=== PATIENT | male | born 1975 | race Caucasian/White ===

== ENCOUNTER 2016-11-21 16:39 | Emergency (ER) | payer MEDICAID ==
[~2016-11-21] VITALS: Ht 177.8 cm; Wt 71.0 kg
[2016-11-21 16:40] VITALS: BP 124/78
== END 2016-11-21 18:14 | disposition left against medical advice (07) ==
LOC: ED 17:50
DX: S56.912A Strain of unspecified muscles, fascia and tendons at forearm level, left arm, initial encounter (principal); S56.911A Strain of unspecified muscles, fascia and tendons at forearm level, right arm, initial encounter; X50.9XXA Other and unspecified overexertion or strenuous movements or postures, initial encounter; Y93.89 Activity, other specified; Y92.89 Other specified places as the place of occurrence of the external cause; Y99.8 Other external cause status
CPT/HCPCS: 99284

== ENCOUNTER 2016-12-01 15:37 | Emergency (ER) | payer MEDICAID ==
[~2016-12-01] VITALS: Ht 177.8 cm; Wt 71.2 kg
[2016-12-01 15:39] VITALS: BP 118/80
[2016-12-01] MEDS ORDERED: KETOROLAC 30 MG/1 ML ONE (16:00)
[2016-12-01] MEDS ORDERED: KETOROLAC 30 MG/1 ML IM ONE (16:00)
== END 2016-12-01 16:22 | disposition home or self-care (01) ==
LOC: ED 16:15
DX: S56.812A Strain of other muscles, fascia and tendons at forearm level, left arm, initial encounter (principal); S56.911A Strain of unspecified muscles, fascia and tendons at forearm level, right arm, initial encounter; X58.XXXA Exposure to other specified factors, initial encounter; Y93.89 Activity, other specified; Y99.8 Other external cause status; Y92.89 Other specified places as the place of occurrence of the external cause
CPT/HCPCS: 96372; 99283; J1885

== ENCOUNTER 2017-12-12 23:19 | Emergency (ER) | payer MEDICAID ==
[~2017-12-12] VITALS: Ht 177.8 cm; Wt 71.1 kg
[2017-12-12 23:20] VITALS: BP 144/89
[2017-12-12] MEDS ORDERED: HYDROcodone/APAP 5/325 TABLET ONE (23:51)
[2017-12-12] MEDS ORDERED: DIPH,PERTUSS(ACELL),TET VAC/PF 0.5 ML IM-VACC ONE (23:52)
[2017-12-12] MEDS ORDERED: KETOROLAC 30 MG/1 ML ONE (23:52)
[2017-12-13] MEDS ORDERED: DIPH,PERTUSS(ACELL),TET VAC/PF 0.5 ML IM-VACC ONE
[2017-12-13] MEDS ORDERED: KETOROLAC 30 MG/1 ML IM ONE
[2017-12-13] MEDS ORDERED: BUPIVACAINE 0.25% ONE (00:20)
[2017-12-13] MEDS ORDERED: LIDOCAINE-MPF 1%, 2ML ONE (00:20)
[2017-12-13] MEDS ORDERED: LIDOCAINE-MPF 2% ,5ML ONE (00:21)
[2017-12-13] MEDS ORDERED: LIDOCAINE-MPF 1%, 2ML INFIL ONE (00:30)
[2017-12-13] MEDS ORDERED: LIDOCAINE 2%, 20ML SQ ONE (00:30)
[2017-12-13] MEDS ORDERED: HYDROcodone/APAP 5/325 TABLET PO ONE (00:30)
[2017-12-13] MEDS ORDERED: BUPIVACAINE 0.25% INFIL ONE (00:30)
[2017-12-13] MEDS ORDERED: LIDOCAINE-MPF 2% ,5ML SQ ONE (01:00)
== END 2017-12-13 00:39 | disposition home or self-care (01) ==
LOC: ED 23:59
DX: S61.232A Puncture wound without foreign body of right middle finger without damage to nail, initial encounter (principal); L03.011 Cellulitis of right finger; W26.8XXA Contact with other sharp object(s), not elsewhere classified, initial encounter; Y93.89 Activity, other specified; Y92.89 Other specified places as the place of occurrence of the external cause; Y99.0 Civilian activity done for income or pay
CPT/HCPCS: 64450; 73140; 90715; 96372; 99284; J1885; J3490

== ENCOUNTER 2017-12-15 00:15 | Inpatient (IN) | payer MEDICAID ==
[~2017-12-15] VITALS: Ht 177.8 cm; Wt 71.1 kg
[2017-12-15] MEDS ORDERED: HYDR-3240 PO (00:38)
[2017-12-15] MEDS ORDERED: SULF1TAB24 PO (00:38)
[2017-12-15] MEDS ORDERED: CEPH-368 PO (00:38)
[2017-12-15] MEDS ORDERED: LIDOCAINE-MPF 2% ,5ML ONE (00:44)
[2017-12-15] MEDS ORDERED: MORPHINE SULFATE 4 MG/ML, 1ML ONE (00:57)
[2017-12-15] MEDS ORDERED: CLINDAMYCIN PMX 600MG/50ML 50 ML ONE (00:57)
[2017-12-15] MEDS ORDERED: MORPHINE SULFATE 4 MG/ML, 1ML IV PRN (01:00)
[2017-12-15] MEDS ORDERED: CLINDAMYCIN PMX 600MG/50ML 50 ML IVPB ONE (01:00)
[2017-12-15] MEDS ORDERED: LIDOCAINE-MPF 1%, 5ML INFIL ONE (01:00)
[2017-12-15] MEDS ORDERED: SODIUM CHLORIDE 0.9% 1,000ML IVBOLUS ONE (01:00)
[2017-12-15] MEDS ORDERED: SODIUM CHLORIDE FLUSH 10ML SYR IVF ONE (01:00)
[2017-12-15 01:09] LABS: BASOPHILS # (AUTO) 0.04 x10^3/uL (0-0.1); BASOPHILS % (AUTO) 0 % (0-1); EOSINOPHILS # (AUTO) 0.03 x10^3/uL (0-0.4); EOSINOPHILS % (AUTO) 0 % (1-7); HCT (SEDRATE) 44.9 % (39.2-51.8); LYMPHOCYTES # (AUTO) 0.98 x10^3/uL (1-3.4); LYMPHOCYTES % (AUTO) 9 % (22-44); MD NO; MEAN CORPUSCULAR HGB CONC 33.6 g/dL (33.2-36.2); MEAN CORPUSCULAR VOLUME 98.5 fL (81-97); MEAN PLATELET VOLUME 8.6 fL (7.4-10.4); MONOCYTES # (AUTO) 0.75 x10^3/uL (0.2-0.8); MONOCYTES % (AUTO) 7 % (2-9); NEUTROPHILS # (AUTO) 8.75 x10^3/uL (1.8-6.8); NEUTROPHILS % (AUTO) 83 % (42-75); PLATELET COUNT 282 x10^3/uL (130-400); RED BLOOD COUNT 4.55 x10^6/uL (4.38-5.82); RED CELL DISTRIBUTION WIDTH 13.1 % (9.4-14.8)
[2017-12-15 01:19] LABS: ALBUMIN 3.8 g/dL (3.4-5.0); ANION GAP 8 mmol/L (5-15); CALCIUM 8.7 mg/dL (8.5-10.1); CHLORIDE 106 mmol/L (98-107); CREATININE 1.15 mg/dL (0.7-1.3)
[2017-12-15 01:42] LABS: SEDIMENTATION RATE 37 mm/hr (0-10)
[2017-12-15 03:01] VITALS: BP 134/85
[2017-12-15] MEDS ORDERED: HYDROcodone/APAP 10/325 MG TABLET PO ONE (03:30)
[2017-12-15] MEDS ORDERED: POLYETHYLENE GLYCOL 17 GM PACKET PO PRN (05:30)
[2017-12-15] MEDS ORDERED: ONDANSETRON 2MG/ML, 2ML IVPush PRN (05:30)
[2017-12-15] MEDS ORDERED: ACETAMINOPHEN 325 MG TABLET PO PRN (05:30)
[2017-12-15] MEDS ORDERED: LORazepam 2 MG/ML, 1ML IV PRN ×3 (05:30)
[2017-12-15] MEDS ORDERED: DOCUSATE 100 MG CAPSULE PO PRN (05:30)
[2017-12-15] MEDS ORDERED: LORazepam 1MG TABLET PO PRN (05:30)
[2017-12-15] MEDS: morphine SULFATE 10 MG/ML, 1ML IVPush PRN ×4 (05:43→21:20)
[2017-12-15] MEDS: NS + 20MEQ KCL 1,000 ML IV SCH ×2 (05:43→19:41)
[2017-12-15] MEDS: NICOTINE 14MG/24 HR PATCH.TD24 TD SCH (05:49)
[2017-12-15] MEDS: ENOXAPARIN 40 MG/0.4 ML SQ SCH (05:51)
[2017-12-15] MEDS: CLINDAMYCIN PMX 600MG/50ML 50 ML IV SCH ×3 (06:02→19:40)
[2017-12-15 06:54] VITALS: BP 117/73
[2017-12-15] MEDS: HYDROcodone/APAP 5/325 TABLET PO PRN ×2 (08:58→14:34)
[2017-12-15 12:39] VITALS: BP 125/79
[2017-12-15] MEDS: LORazepam 0.5MG TABLET PO PRN ×2 (14:34→18:05)
[2017-12-15 18:49] VITALS: BP 131/78
[2017-12-15] MEDS: LORazepam 1MG TABLET PO PRN (20:11)
[2017-12-16] MEDS: LORazepam 1MG TABLET PO PRN (00:20)
[2017-12-16] MEDS: HYDROcodone/APAP 5/325 TABLET PO PRN ×5 (00:20→21:22)
[2017-12-16] MEDS: CLINDAMYCIN PMX 600MG/50ML 50 ML IV SCH ×4 (01:33→20:06)
[2017-12-16 02:19] VITALS: BP 115/71
[2017-12-16 05:04] LABS: BASOPHILS # (AUTO) 0.05 x10^3/uL (0-0.1); BASOPHILS % (AUTO) 1 % (0-1); EOSINOPHILS # (AUTO) 0.08 x10^3/uL (0-0.4); EOSINOPHILS % (AUTO) 1 % (1-7); LYMPHOCYTES # (AUTO) 0.99 x10^3/uL (1-3.4); LYMPHOCYTES % (AUTO) 14 % (22-44); MD NO; MEAN CORPUSCULAR HEMOGLOBIN 33.8 pg (27.5-34.5); MEAN CORPUSCULAR VOLUME 99.6 fL (81-97); MEAN PLATELET VOLUME 8.9 fL (7.4-10.4); MONOCYTES # (AUTO) 1.08 x10^3/uL (0.2-0.8); MONOCYTES % (AUTO) 16 % (2-9); NEUTROPHILS # (AUTO) 4.69 x10^3/uL (1.8-6.8); NEUTROPHILS % (AUTO) 68 % (42-75); PLATELET COUNT 217 x10^3/uL (130-400); RED BLOOD COUNT 4.06 x10^6/uL (4.38-5.82); RED CELL DISTRIBUTION WIDTH 12.7 % (9.4-14.8)
[2017-12-16 05:09] LABS: ANION GAP 6 mmol/L (5-15); CALCIUM 8.5 mg/dL (8.5-10.1); CHLORIDE 101 mmol/L (98-107); CREATININE 0.75 mg/dL (0.7-1.3)
[2017-12-16] MEDS: NICOTINE 14MG/24 HR PATCH.TD24 TD SCH (05:36)
[2017-12-16] MEDS: morphine SULFATE 10 MG/ML, 1ML IVPush PRN (05:38)
[2017-12-16] MEDS: ENOXAPARIN 40 MG/0.4 ML SQ SCH (06:00)
[2017-12-16 06:40] VITALS: BP 132/82
[2017-12-16] MEDS: NS + 20MEQ KCL 1,000 ML IV SCH (11:42)
[2017-12-16 14:54] VITALS: BP_SYST 130; BP_SYST 131; BP_DIAS 74; BP_DIAS 77
[2017-12-16 19:53] VITALS: BP 133/83
[2017-12-17] MEDS: CLINDAMYCIN PMX 600MG/50ML 50 ML IV SCH ×2 (01:05→08:01)
[2017-12-17] MEDS: NS + 20MEQ KCL 1,000 ML IV SCH (01:05)
[2017-12-17] MEDS: HYDROcodone/APAP 5/325 TABLET PO PRN ×2 (01:05→10:39)
[2017-12-17 01:09] VITALS: BP 120/77
[2017-12-17] MEDS: morphine SULFATE 10 MG/ML, 1ML IVPush PRN (05:57)
[2017-12-17] MEDS: ENOXAPARIN 40 MG/0.4 ML SQ SCH (05:58)
[2017-12-17] MEDS: NICOTINE 14MG/24 HR PATCH.TD24 TD SCH (05:59)
[2017-12-17 07:37] VITALS: BP 127/83
== END 2017-12-17 14:38 | disposition left against medical advice (07) | DRG 603 ==
LOC: ED 01:24 → EDIP 02:14 → 3NE 02:53
PROVIDERS: ADMIT Family Medicine; ATTEND Family Medicine
PROC: 3E0T3BZ Introduction of Anesthetic Agent into Peripheral Nerves and Plexi, Percutaneous Approach (ICD-10-PCS; principal; 2017-12-15)
PROC: 0H9FXZZ Drainage of Right Hand Skin, External Approach (ICD-10-PCS; 2017-12-15)
DX: L03.011 Cellulitis of right finger (principal); R56.9 Unspecified convulsions; L02.511 Cutaneous abscess of right hand; L03.021 Acute lymphangitis of right finger; F10.10 Alcohol abuse, uncomplicated; M54.12 Radiculopathy, cervical region; S60.031A Contusion of right middle finger without damage to nail, initial encounter; Z53.21 Procedure and treatment not carried out due to patient leaving prior to being seen by health care provider; B95.5 Unspecified streptococcus as the cause of diseases classified elsewhere; X58.XXXA Exposure to other specified factors, initial encounter; Z72.0 Tobacco use; Y93.89 Activity, other specified; Y92.89 Other specified places as the place of occurrence of the external cause; Y99.8 Other external cause status
CPT/HCPCS: 26010; 36415; 80048; 82040; 85025; 85651; 86140; 87040; 87070; 87147; 87181; 87205; 96365; 96375; J1650; J3480; J2270; J7030

== ENCOUNTER 2018-02-07 19:40 | Emergency (ER) | payer MEDICAID ==
[~2018-02-07] VITALS: Ht 177.8 cm; Wt 70.9 kg
[~2018-02-07 19:40] MED LIST: CEPH-368 PO; HYDR-3240 PO; SULF1TAB24 PO
[2018-02-07 20:10] VITALS: BP 113/76
[2018-02-07] MEDS ORDERED: METHOCARBAMOL 750 MG TABLET ONE (20:29)
[2018-02-07] MEDS ORDERED: CEFTRIAXONE 1,000 MG ONE (20:29)
[2018-02-07] MEDS ORDERED: LIDOCAINE-MPF 1%, 2ML ONE ×2 (20:29→20:51)
[2018-02-07] MEDS ORDERED: METHOCARBAMOL 750 MG TABLET PO ONE (20:30)
[2018-02-07] MEDS ORDERED: CEFTRIAXONE 1,000 MG IM ONE ×2 (20:30)
[2018-02-07] MEDS ORDERED: LIDOCAINE-MPF 1%, 5ML INFIL ONE (20:30)
[2018-02-07] MEDS ORDERED: BACITRACIN ZINC OINT 500U/GM, 0.9 GM ONE (21:30)
== END 2018-02-07 21:38 | disposition home or self-care (01) ==
LOC: ED 21:32
DX: L02.413 Cutaneous abscess of right upper limb (principal); S16.1XXA Strain of muscle, fascia and tendon at neck level, initial encounter; Z88.0 Allergy status to penicillin; F17.200 Nicotine dependence, unspecified, uncomplicated; X58.XXXA Exposure to other specified factors, initial encounter; Y93.89 Activity, other specified; Y99.8 Other external cause status; Y92.89 Other specified places as the place of occurrence of the external cause
CPT/HCPCS: 10060; 96372; 99283; J0696

== ENCOUNTER 2018-04-06 09:34 | Emergency (ER) | payer MEDICAID ==
[~2018-04-06] VITALS: Ht 177.8 cm; Wt 70.1 kg
[2018-04-06] MEDS ORDERED: HYDROmorphone 2 MG/ML, 1ML ONE (10:24)
[2018-04-06] MEDS ORDERED: HYDROmorphone 1 MG/ML, 1ML IM ONE (10:30)
[2018-04-06] MEDS ORDERED: SODIUM CHLORIDE FLUSH 10ML SYR IVF ONE (11:00)
[2018-04-06] MEDS ORDERED: MORPHINE SULFATE 4 MG/ML, 1ML IVPush PRN (11:00)
[2018-04-06] MEDS ORDERED: ETOMIDATE 20 MG/10 ML ONE (11:25)
[2018-04-06] MEDS ORDERED: FENTANYL PF 100 MCG/2ML ONE (11:25)
[2018-04-06 13:01] VITALS: BP 136/82
== END 2018-04-06 13:05 | disposition home or self-care (01) ==
LOC: ED 10:04
DX: S52.591A Other fractures of lower end of right radius, initial encounter for closed fracture (principal); F17.200 Nicotine dependence, unspecified, uncomplicated; V19.9XXA Pedal cyclist (driver) (passenger) injured in unspecified traffic accident, initial encounter; Y93.55 Activity, bike riding; Y99.8 Other external cause status; Y92.410 Unspecified street and highway as the place of occurrence of the external cause
CPT/HCPCS: 25605; 73100; 73110; 96372; 99285; J1170

== ENCOUNTER 2018-07-16 14:04 | Emergency (ER) | payer MEDICAID ==
[~2018-07-16] VITALS: Ht 177.8 cm; Wt 70.6 kg
[2018-07-16] MEDS ORDERED: ACETAMINOPHEN 500 MG TABLET PO ONE (14:30)
[2018-07-16 14:53] LABS: MEAN CORPUSCULAR HGB CONC 34.3 g/dL (33.2-36.2); MEAN PLATELET VOLUME 8.4 fL (7.4-10.4); PLATELET COUNT 321 x10^3/uL (130-400); RED BLOOD COUNT 4.29 x10^6/uL (4.38-5.82); RED CELL DISTRIBUTION WIDTH 12.7 % (9.4-14.8)
[2018-07-16 14:55] LABS: MD YES
[2018-07-16 15:03] LABS: ALANINE AMINOTRANSFERASE 120 U/L (12-78); ALBUMIN 3.6 g/dL (3.4-5.0); ANION GAP 9 mmol/L (5-15); CALCIUM 8.3 mg/dL (8.5-10.1); CHLORIDE 99 mmol/L (98-107); CREATININE 0.72 mg/dL (0.7-1.3)
[2018-07-16 15:05] LABS: ALKALINE PHOSPHATASE 121 U/L (45-117); BILIRUBIN,TOTAL 0.7 mg/dL (0.2-1.0); TOTAL PROTEIN 8.6 g/dL (6.4-8.2)
[2018-07-16 15:15] LABS: SEG#(MANUAL) 10.03 x10^3/uL (1.8-6.8); SEGS% (MANUAL) 79 % (42-75)
[2018-07-16 15:16] LABS: BASOS#(MANUAL) 0.13 x10^3/uL (0-0.1); BASOS% (MANUAL) 1 % (0-1); LYMPH#(MANUAL) 1.02 x10^3/uL (1-3.4); LYMPHS% (MANUAL) 8 % (22-44); MONOS#(MANUAL) 1.52 x10^3/uL (0.3-2.7); MONOS% (MANUAL) 12 % (2-9)
[2018-07-16 15:17] LABS: <PLATELET ESTIMATE> ADEQUATE; ANISOCYTOSIS 1+; LARGE PLATELETS 1+
[2018-07-16] MEDS ORDERED: ACETAMINOPHEN 500 MG TABLET ONE (15:30)
--- NOTE | 2018-07-16 15:37 | NUR ---
PT C/O FLU -LIKE SX X 3 DAYS. STATES HIS LAST DOSE OF IBUPROFEN WAS YESTERDAY. MEDICATED WITH TYLENOL ORDERED BY . PT'S XR'S ARE COMPLETED. AWAITING LAB RESULTS.
--- NOTE | 2018-07-16 15:56 | NUR ---
D/C PER MD. PT IS ALERT AND ORIENTED AND AMBULATORY WTHOUT ASSIST. VSS.
[2018-07-16 15:57] VITALS: BP 124/76
== END 2018-07-16 16:00 | disposition home or self-care (01) ==
LOC: ED 15:45
DX: J18.9 Pneumonia, unspecified organism (principal)
CPT/HCPCS: 36415; 71046; 80053; 85025; 99284

== ENCOUNTER 2018-08-19 13:14 | Emergency (ER) | payer MEDICAID ==
[~2018-08-19] VITALS: Ht 177.8 cm; Wt 70.0 kg
[2018-08-19 13:35] VITALS: BP 136/92
[2018-08-19] MEDS ORDERED: HYDROcodone/APAP 5/325 TABLET ONE (13:49)
[2018-08-19] MEDS ORDERED: HYDROcodone/APAP 5/325 TABLET PO PRN (14:00)
== END 2018-08-19 15:29 | disposition home or self-care (01) ==
LOC: ED 14:02
DX: M25.531 Pain in right wrist (principal); M79.631 Pain in right forearm; M79.10 Myalgia, unspecified site
CPT/HCPCS: 99283

== ENCOUNTER 2018-08-29 17:13 | Emergency (ER) | payer MEDICAID ==
[~2018-08-29] VITALS: Ht 177.8 cm; Wt 71.0 kg
[2018-08-29 17:15] VITALS: BP 120/80
--- NOTE | 2018-08-29 18:13 | NUR ---
Patient/Caregiver given discharge instructions and they have confirmed that they understand the instructions. Patient ambulatory with steady gait.
== END 2018-08-29 18:14 | disposition home or self-care (01) ==
LOC: ED 17:58
DX: M79.631 Pain in right forearm (principal); F17.200 Nicotine dependence, unspecified, uncomplicated
CPT/HCPCS: 29260; 99283

== ENCOUNTER 2020-06-17 20:33 | Emergency (ER) | payer MEDICAID ==
[~2020-06-17] VITALS: Ht 177.8 cm; Wt 65.0 kg
[2020-06-17] MEDS ORDERED: DIPH,PERTUSS(ACELL),TET VAC/PF 0.5 ML IM-VACC ONE ×2 (20:54→21:00)
[2020-06-17] MEDS ORDERED: SILVER NITRATE STICK TP ONE ×2 (20:54→21:00)
[2020-06-17] MEDS ORDERED: NEOSPORIN OINT. PKT 1 PACKET ONE (21:05)
[2020-06-17 21:35] VITALS: BP 133/88
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
== END 2020-06-17 21:37 | disposition home or self-care (01) ==
LOC: ED 20:54
DX: S71.131A Puncture wound without foreign body, right thigh, initial encounter (principal); G89.11 Acute pain due to trauma; F10.10 Alcohol abuse, uncomplicated; F17.210 Nicotine dependence, cigarettes, uncomplicated; Z72.9 Problem related to lifestyle, unspecified; X58.XXXA Exposure to other specified factors, initial encounter; Y93.89 Activity, other specified; Y92.098 Other place in other non-institutional residence as the place of occurrence of the external cause; Y99.8 Other external cause status; Y90.0 Blood alcohol level of less than 20 mg/100 ml
CPT/HCPCS: 90471; 90715; 99283

== ENCOUNTER 2020-09-02 00:42 | Emergency (ER) | payer MEDICAID ==
[~2020-09-02] VITALS: Ht 177.8 cm; Wt 55.0 kg
[~2020-09-02 00:42] MED LIST changes: +HYDR-1067 PO; -HYDR-3240 PO
--- NOTE | 2020-09-02 00:45 | NUR ---
PT BIBA. PER EMS PT HAS HAD 3 PINTS OF VODKA TO DRINK AND FELL, HITTING HIS HEAD ON A CORNER OF A TABLE. PT HAS A LACERATION ON HIS LEFT CHEEK. KIMBERLEY SEGAL AT BEDSIDE. PER PT HE DRINKS 3 PINTS OF VODKA DAILY. PT STATES HE USED TO USE HEROIN AND METH BUT HAS NOT IN OVER A MONTH. PT RESTING IN [facility], MONITORING IN PLACE, NADN AT THIS TIME, NO NEEDS AT THIS TIME PER PT, WCTM.
[2020-09-02 01:25] LABS: BASOPHILS % (AUTO) 1 % (0-1); EOSINOPHILS % (AUTO) 12 % (1-7); LYMPHOCYTES % (AUTO) 11 % (22-44); MEAN CORPUSCULAR HEMOGLOBIN 33.9 pg (27.5-34.5); MEAN CORPUSCULAR HGB CONC 35.2 g/dL (33.2-36.2); MEAN PLATELET VOLUME 9.5 fL (7.4-10.4); MONOCYTES % (AUTO) 15 % (2-9); NEUTROPHILS % (AUTO) 61 % (42-75); PLATELET COUNT 157 x10^3/uL (130-400); RED CELL DISTRIBUTION WIDTH 14.3 % (9.4-14.8)
[2020-09-02 01:26] LABS: MD NO
[2020-09-02] MEDS ORDERED: LIDOCAINE 1%-EPI 1:100K, 20ML INFIL ONE (01:30)
[2020-09-02 01:36] LABS: ALANINE AMINOTRANSFERASE 116 U/L (12-78); ALBUMIN 3.5 g/dL (3.4-5.0); ANION GAP 9 mmol/L (5-15); CALCIUM 8.2 mg/dL (8.5-10.1); CHLORIDE 94 mmol/L (98-107); CREATININE 0.75 mg/dL (0.7-1.3)
[2020-09-02 01:40] LABS: ALKALINE PHOSPHATASE 222 U/L (45-117); BILIRUBIN,TOTAL 0.6 mg/dL (0.2-1.0); TOTAL PROTEIN 8.1 g/dL (6.4-8.2)
--- NOTE | 2020-09-02 01:41 | NUR ---
CT DELAY- PT IS GETTING SUTURED.
[2020-09-02] MEDS ORDERED: NEOSPORIN OINT. PKT 1 PACKET ONE (01:54)
--- NOTE | 2020-09-02 02:02 | NUR ---
REPORT GIVEN TO PIPER ALBERTO.
--- NOTE | 2020-09-02 02:08 | NUR ---
BEDSIDE REPORT FROM RUBEN SALDAÑA, PT CARE TRANSFERRED AT THIS TIME. PT NAD, BACK FROM CT, RESTING ON GURNEY, NO CHANGE IN CONDITION, WCTM. WAITING FOR CT READ
--- NOTE | 2020-09-02 03:00 | NUR ---
pt resting on gurney, nad, appears comfortable, even and unlabored respirations, refusing to wear vitals monitoring equipment at this time, bed in lowest, rails engaged, wctm. mtf
--- NOTE | 2020-09-02 03:49 | NUR ---
pt resting on gurney nad, appears comfortable, even and unlabored respirations, bed in lowest, rails engaged, wctm. mtf
--- NOTE | 2020-09-02 05:28 | NUR ---
Patient given discharge instructions and they have confirmed that they understand the instructions. Patient ambulatory with steady gait. nad, denies additional questions or needs, no personal belongings left in room after dc. provided taxi voucher.
[2020-09-02 05:29] VITALS: BP 122/73
== END 2020-09-02 05:31 | disposition home or self-care (01) ==
LOC: ED 01:41
DX: S02.2XXA Fracture of nasal bones, initial encounter for closed fracture (principal); S01.412A Laceration without foreign body of left cheek and temporomandibular area, initial encounter; S01.112A Laceration without foreign body of left eyelid and periocular area, initial encounter; G31.2 Degeneration of nervous system due to alcohol; F10.229 Alcohol dependence with intoxication, unspecified; R94.5 Abnormal results of liver function studies; M79.7 Fibromyalgia; F17.210 Nicotine dependence, cigarettes, uncomplicated; Z72.9 Problem related to lifestyle, unspecified; W01.0XXA Fall on same level from slipping, tripping and stumbling without subsequent striking against object, initial encounter; Y93.89 Activity, other specified; Y92.098 Other place in other non-institutional residence as the place of occurrence of the external cause; Y99.8 Other external cause status; Y90.9 Presence of alcohol in blood, level not specified
CPT/HCPCS: 12041; 12051; 36415; 70450; 70486; 80053; 80320; 85025; 99285; 99406; G0480

== ENCOUNTER 2020-09-06 11:05 | Emergency (ER) | payer MEDICAID ==
[~2020-09-06] VITALS: Ht 177.8 cm; Wt 65.0 kg
--- NOTE | 2020-09-06 11:07 | NUR ---
PT IN [facility]ON
--- NOTE | 2020-09-06 11:24 | NUR ---
THIS IS A 45 YO M W/ C/O SOB, ANXIETY, SOB WHILE TRYING TO SLEEP. WHEN ASKING PT QUESTIONS FIRST RESPONE IS "I DONT KNOW" W/ MULTIPLE ASSESSMENT QUESTIONS. PT HAS TO BE ASKED SPECIFIC QUESTIONS. PT RESTING ON GURNEY W/ CALL LIGHT IN REACH AND SIDE RAILS UPX2. VSS, DIVINE. AT BEDSIDE.
--- NOTE | 2020-09-06 11:26 | NUR ---
PT DENIES SI/HI. REPORTS DRINKS 3 PINTS/DAY. REPORTS NO LONGER USING HEROIN/METH.
--- NOTE | 2020-09-06 11:35 | NUR ---
PT DESAT TO 83% RA WHILE LYING SUPINE IN BED. PLACED ON 4L NC W/ DESIRED EFFECT.
--- NOTE | 2020-09-06 11:39 | NUR ---
PT PROVIDED W/ URINAL AND EDUCATED ON NEED FOR SAMPLE. PROVIDED W/ 2 WATER BOTTLES AND 1 SPRITE.
[2020-09-06 11:50] LABS: MEAN CORPUSCULAR HEMOGLOBIN 33.8 pg (27.5-34.5); MEAN CORPUSCULAR HGB CONC 35.2 g/dL (33.2-36.2); MEAN PLATELET VOLUME 8.1 fL (7.4-10.4); PLATELET COUNT 243 x10^3/uL (130-400); RED BLOOD COUNT 4.28 x10^6/uL (4.38-5.82); RED CELL DISTRIBUTION WIDTH 14.6 % (9.4-14.8)
--- NOTE | 2020-09-06 12:00 | NUR ---
PT TAKEN OFF O2. ABLE TO MAINTAIN SATS >92% RA.
[2020-09-06 12:07] LABS: ALANINE AMINOTRANSFERASE 76 U/L (12-78); ALBUMIN 3.2 g/dL (3.4-5.0); ANION GAP 11 mmol/L (5-15); CALCIUM 8.4 mg/dL (8.5-10.1); CHLORIDE 95 mmol/L (98-107); CREATININE 0.81 mg/dL (0.7-1.3)
[2020-09-06 12:09] LABS: ALKALINE PHOSPHATASE 202 U/L (45-117); BILIRUBIN,TOTAL 0.6 mg/dL (0.2-1.0)
--- NOTE | 2020-09-06 12:14 | NUR ---
PT PROVIDED W/ REGULAR DIET TRAY. OK PER . PT SITTING UP ON [employer] W/ CALL LIGHT IN REACH AND SIDE RAILS UPX2. RESP EVEN AND UNLABORED, DIVINE.
[2020-09-06 12:15] LABS: MD YES
[2020-09-06 12:16] LABS: BASOS#(MANUAL) 0.15 x10^3/uL (0-0.1); BASOS% (MANUAL) 2 % (0-1); SEGS% (MANUAL) 56 % (42-75)
[2020-09-06 12:17] LABS: <PLATELET ESTIMATE> ADEQUATE; <PLT MORPHOLOGY> NORMAL PLT MORPH; <RBC MORPHOLOGY> NORMAL; EOS#(MANUAL) 1.65 x10^3/uL (0.0-0.4); EOS% (MANUAL) 22 % (1-7); LYMPH#(MANUAL) 1.05 x10^3/uL (1-3.4); LYMPHS% (MANUAL) 14 % (22-44); MONOS#(MANUAL) 0.45 x10^3/uL (0.3-2.7); MONOS% (MANUAL) 6 % (2-9)
[2020-09-06 12:19] LABS: AMPHETAMINE SCREEN, URINE Positive (Negative); BARBITURATE SCREEN, URINE Negative (Negative); BENZODIAZEPINE SCREEN, URINE Negative (Negative); CANNABINOID SCREEN, URINE Negative (Negative); COCAINE SCREEN, URINE Negative (Negative); METHADONE SCREEN, URINE Negative (Negative); OPIATE SCREEN, URINE Negative (Negative)
--- NOTE | 2020-09-06 12:37 | NUR ---
PT CONTINUES TO SIT UP ON GURNEY, EATING TRAY W/O DISTRESS. RESP EVEN AND UNLABORED, DIVINE.
--- NOTE | 2020-09-06 12:54 | NUR ---
ALL TESTS RESULTED. PT UPDATED ON POC. LIGHTS TURNED DOWN FOR PT. CONNECTED TO ALL MONITORING. VSS, DIVINE.
--- NOTE | 2020-09-06 14:43 | NUR ---
PT SLEEPING ON GURNEY W/ CALL LIGHT IN REACH AND SIDE RAILS UPX2. MARCUSS, DIVINE.
--- NOTE | 2020-09-06 15:44 | NUR ---
PT MASTURBATING IN ROOM. ASKED TO STOP AND EDUCATED THAT THIS IS NOT THE APPROPRIATE SETTING. PT VERBALIZED UNDERSTANDING. RESTING ON [employer] W/ CALL LIGHT IN REACH AND SIDE RAILS UPX2. RESP EVEN AND UNLABORED.
--- NOTE | 2020-09-06 15:58 | NUR ---
TASK RN: PROVIDED MEAL TRAY TO PT. PT SITTING UP EATING WITHOUT DIFFICULTY.
--- NOTE | 2020-09-06 17:08 | NUR ---
ATTEMPT TO HAVE PT SIT UP ON GURNEY AND POSSIBLE AMBULATION. PT TREMULOUS, STATES HE FEEL'S TO WEAK TO HOLD HIMSELF UP ON GURNEY. WILL ALLOW MORE TIME TO METABOLIZE. DIVINE KHANNA.
--- NOTE | 2020-09-06 17:11 | NUR ---
PT PROVIED W/ 2 MORE WATER BOTTLES AND 2 MORE SPRITES.
--- NOTE | 2020-09-06 17:28 | NUR ---
REPORT GIVEN TO JEB SALDAÑA. PT SLEEPING ON GURNEY W/ CALL LIGHT IN REACH AND SIDE RAILS UPX2. EASILY AROUSABLE TO VOICE/TOUCH. DIVINE KHANNA. PT ON 2L NC FOR SAFETY.
[2020-09-06 18:31] VITALS: BP 130/78
--- NOTE | 2020-09-06 18:31 | NUR ---
Pt sleeping, VSS.
--- NOTE | 2020-09-06 18:44 | NUR ---
Pt awoke, dressing self in new clothes. This RN questioned "are you steady on your feet?" Pt answers "I think so, I just need some alcohol."
== END 2020-09-06 18:53 | disposition home or self-care (01) ==
LOC: ED 11:43
DX: F10.120 Alcohol abuse with intoxication, uncomplicated (principal); F15.220 Other stimulant dependence with intoxication, uncomplicated; Y90.0 Blood alcohol level of less than 20 mg/100 ml; R06.89 Other abnormalities of breathing
CPT/HCPCS: 36415; 71045; 80053; 80307; 80320; 83735; 85025; 99285; G0480

== ENCOUNTER 2020-10-08 13:12 | Emergency (ER) | payer MEDICAID ==
[~2020-10-08] VITALS: Ht 177.8 cm; Wt 72.5 kg
[2020-10-08 13:21] VITALS: BP 129/90
--- NOTE | 2020-10-08 13:30 | NUR ---
SEEN BY PA IN LOBBY. CLEANED AND DRESSED WOUND.
[2020-10-08] MEDS ORDERED: NEOSPORIN OINT. PKT 1 PACKET ONE (13:33)
== END 2020-10-08 13:48 | disposition home or self-care (01) ==
LOC: ED 13:42
DX: L03.113 Cellulitis of right upper limb (principal); F17.210 Nicotine dependence, cigarettes, uncomplicated
CPT/HCPCS: 99283; 99406

== ENCOUNTER 2020-10-14 19:25 | Inpatient (IN) | payer MEDICAID ==
[~2020-10-14] VITALS: Ht 177.8 cm; Wt 78.0 kg
[~2020-10-14 19:25] MED LIST changes: +MUPIROCIN OINT 2%, 22GM TP ONE
[2020-10-14] MEDS ORDERED: DIPH,PERTUSS(ACELL),TET VAC/PF 0.5 ML IM-VACC ONE (20:30)
[2020-10-14] MEDS ORDERED: CLINDAMYCIN PMX 900MG/50ML 50 ML IVPB ONE (20:30)
[2020-10-14] MEDS ORDERED: SODIUM CHLORIDE FLUSH 10ML SYR IVF ONE (20:30)
[2020-10-14] MEDS ORDERED: KETOROLAC 30 MG/1 ML ONE (20:50)
--- NOTE | 2020-10-14 20:53 | NUR ---
LAB IN ROOM DRAWING BOTH BLOOD CULTURES. VS STABLE. NO ACUTE DISTRESS NOTED. WILL CONTINUE TO MONITOR.
[2020-10-14] MEDS ORDERED: KETOROLAC 30 MG/1 ML IVPush ONE (21:00)
[2020-10-14] MEDS ORDERED: MUPIROCIN OINT 2%, 22GM TP ONE (21:00)
[2020-10-14] MEDS ORDERED: CLINDAMYCIN PMX 900MG/50ML 50 ML ONE (21:00)
--- NOTE | 2020-10-14 21:06 | NUR ---
both blood cultures drawn before abx given
[2020-10-14 21:09] LABS: BASOPHILS % (AUTO) 1 % (0-1); EOSINOPHILS % (AUTO) 1 % (1-7); LYMPHOCYTES % (AUTO) 15 % (22-44); MEAN CORPUSCULAR HEMOGLOBIN 34.8 pg (27.5-34.5); MEAN CORPUSCULAR HGB CONC 34.1 g/dL (33.2-36.2); MEAN PLATELET VOLUME 8.7 fL (7.4-10.4); MONOCYTES % (AUTO) 13 % (2-9); NEUTROPHILS % (AUTO) 70 % (42-75); PLATELET COUNT 229 x10^3/uL (130-400); RED CELL DISTRIBUTION WIDTH 15.2 % (9.4-14.8)
[2020-10-14 21:12] LABS: MD NO
[2020-10-14 21:19] LABS: ALBUMIN 3.3 g/dL (3.4-5.0); ANION GAP 8 mmol/L (5-15); CALCIUM 8.2 mg/dL (8.5-10.1); CHLORIDE 105 mmol/L (98-107)
[2020-10-14 21:22] LABS: ALANINE AMINOTRANSFERASE 71 U/L (12-78); ALKALINE PHOSPHATASE 118 U/L (45-117); BILIRUBIN,TOTAL 0.3 mg/dL (0.2-1.0); CREATININE 0.59 mg/dL (0.7-1.3); TOTAL PROTEIN 7.6 g/dL (6.4-8.2)
[2020-10-14] MEDS ORDERED: OMNIPAQUE 350 MG/ML, 100ML BOTTLE ONE (21:30)
[2020-10-14] MEDS ORDERED: POTASSIUM CHLORIDE 20 MEQ TAB.ER.PRT PO SCH (22:00)
--- NOTE | 2020-10-14 22:17 | NUR ---
hospitalist in room
[2020-10-14] MEDS ORDERED: POTASSIUM CHLORIDE 20 MEQ TAB.ER.PRT ONE (22:33)
[2020-10-14] MEDS ORDERED: VANCOMYCIN PER PHARMACY MC PRN (23:00)
[2020-10-14] MEDS ORDERED: ONDANSETRON ODT 4 MG PO PRN (23:00)
[2020-10-14] MEDS ORDERED: BISACODYL 10 MG SUPP PR PRN (23:00)
[2020-10-14] MEDS ORDERED: SODIUM CHLORIDE FLUSH 10ML SYR IVF SCH (23:00)
[2020-10-14] MEDS ORDERED: ACETAMINOPHEN 325 MG TABLET PO PRN (23:00)
[2020-10-14] MEDS ORDERED: POLYETHYLENE GLYCOL 17 GM PACKET PO PRN (23:00)
[2020-10-14 23:06] VITALS: BP 132/83
[2020-10-14] MEDS ORDERED: PHARMACOKINETIC MONITORING MC PRN (23:30)
[2020-10-14] MEDS ORDERED: PHARMACOKINETIC CONSULTATION MC ONE (23:30)
[2020-10-14] MEDS ORDERED: VANCOMYCIN 1,800 MG in SODIUM CHLORIDE 0.9% 250 ML IV ONE (23:30)
[2020-10-15] MEDS ORDERED: CHLORDIAZEPOXIDE 25 MG CAPSULE PO PRN
[2020-10-15] MEDS ORDERED: LORazepam 2 MG/ML, 1ML IVPush PRN
[2020-10-15] MEDS: AMPICILLIN/SULBACTAM 3 GM in SODIUM CHLORIDE 0.9% 100 ML IV SCH ×2 (00:04→05:52)
[2020-10-15] MEDS: HEPARIN 5,000 UNITS/ML, 1ML SQ SCH ×2 (00:04→08:00)
[2020-10-15 01:15] VITALS: BP 125/62
[2020-10-15 04:56] LABS: BASOPHILS % (AUTO) 1 % (0-1); EOSINOPHILS % (AUTO) 1 % (1-7); LYMPHOCYTES % (AUTO) 22 % (22-44); MEAN CORPUSCULAR HEMOGLOBIN 35.2 pg (27.5-34.5); MEAN CORPUSCULAR HGB CONC 34.8 g/dL (33.2-36.2); MEAN PLATELET VOLUME 8.7 fL (7.4-10.4); MONOCYTES % (AUTO) 15 % (2-9); NEUTROPHILS % (AUTO) 61 % (42-75); PLATELET COUNT 210 x10^3/uL (130-400); RED BLOOD COUNT 3.64 x10^6/uL (4.38-5.82)
[2020-10-15 04:57] LABS: MD NO
[2020-10-15 05:08] LABS: CHLORIDE 106 mmol/L (98-107)
[2020-10-15 05:21] LABS: ANION GAP 9 mmol/L (5-15); CALCIUM 7.9 mg/dL (8.5-10.1); CREATININE 0.53 mg/dL (0.7-1.3)
[2020-10-15] MEDS ORDERED: POTASSIUM CHLORIDE 20 MEQ TAB.ER.PRT PO ONE (07:00)
[2020-10-15] MEDS ORDERED: POTASSIUM CHLORIDE 40 MEQ in SODIUM CHLORIDE 0.9% 500 ML IV ONE (07:00)
[2020-10-15 07:30] VITALS: BP 120/73
[2020-10-15] MEDS ORDERED: THIAMINE 100MG TABLET PO SCH (09:00)
[2020-10-15] MEDS ORDERED: SENNA/DOCUSATE TABLET PO SCH (09:00)
[2020-10-15] MEDS ORDERED: FOLIC ACID 1 MG TABLET PO SCH (09:00)
[2020-10-15] MEDS ORDERED: MULTIVITAMIN 1 TABLET PO SCH (09:00)
[2020-10-15] MEDS ORDERED: VANCOMYCIN 1,500 MG in SODIUM CHLORIDE 0.9% 250 ML IV SCH (12:00)
== END 2020-10-15 09:00 | disposition left against medical advice (07) | DRG 603 ==
LOC: ED 19:55 → EDIP 21:40 → 3N 22:59
PROVIDERS: ADMIT Internal Medicine; ATTEND Family Medicine
DX: L03.113 Cellulitis of right upper limb (principal); F17.210 Nicotine dependence, cigarettes, uncomplicated; F10.10 Alcohol abuse, uncomplicated; E87.6 Hypokalemia; D53.9 Nutritional anemia, unspecified; F15.10 Other stimulant abuse, uncomplicated; Z53.29 Procedure and treatment not carried out because of patient's decision for other reasons
CPT/HCPCS: 36415; 80048; 80053; 83605; 83735; 85025; 87040; 96365; G0378; J0295; J1644; J1885; J3370; J3480; Q9967; J7040; J7050

== ENCOUNTER 2020-11-24 11:47 | Emergency (ER) | payer MEDICAID ==
[~2020-11-24] VITALS: Ht 177.8 cm; Wt 70.8 kg
[~2020-11-24 11:47] MED LIST changes: -HYDR-1067 PO; +HYDR-2214 PO; -MUPIROCIN OINT 2%, 22GM TP ONE; +SULF-23 PO; -SULF1TAB24 PO
--- NOTE | 2020-11-24 12:07 | NUR ---
PT C/O LEFT SIDED ABDOMINAL PAIN NEAR UMBILICUS WORSE WITH PALPATION. NO APPRECIABLE BULGE NOTED BUT PT FEELS THER IS A BUMO THRE. HE DENIES ANY OTHER SYMPTOMS INCLUDING DYSURIA, FEVERS, BODY ACHES, DIARRHEA, OR BLOOD IN STOOL. AWAITING MD EXAM.
[2020-11-24 12:27] LABS: BASOPHILS % (AUTO) 2 % (0-1); EOSINOPHILS % (AUTO) 1 % (1-7); LYMPHOCYTES % (AUTO) 26 % (22-44); MEAN CORPUSCULAR HEMOGLOBIN 34.9 pg (27.5-34.5); MEAN CORPUSCULAR HGB CONC 34.4 g/dL (33.2-36.2); MEAN PLATELET VOLUME 8.9 fL (7.4-10.4); MONOCYTES % (AUTO) 11 % (2-9); NEUTROPHILS % (AUTO) 60 % (42-75); PLATELET COUNT 224 x10^3/uL (130-400); RED BLOOD COUNT 3.94 x10^6/uL (4.38-5.82); RED CELL DISTRIBUTION WIDTH 13.4 % (9.4-14.8)
[2020-11-24 12:28] LABS: MD NO
[2020-11-24] MEDS ORDERED: SODIUM CHLORIDE 0.9% 1,000ML IVBOLUS ONE (12:30)
[2020-11-24] MEDS ORDERED: LORazepam 2 MG/ML, 1ML IVPush ONE (12:30)
[2020-11-24] MEDS ORDERED: FAMOTIDINE 20 MG/2 ML IVPush ONE (12:30)
[2020-11-24] MEDS ORDERED: ONDANSETRON 2MG/ML, 2ML IVPush ONE (12:30)
[2020-11-24] MEDS ORDERED: ONDANSETRON 2MG/ML, 2ML ONE (12:30)
[2020-11-24] MEDS ORDERED: FAMOTIDINE 20 MG/2 ML ONE (12:31)
[2020-11-24] MEDS ORDERED: LORazepam 2 MG/ML, 1ML ONE (12:31)
[2020-11-24 12:40] LABS: ALANINE AMINOTRANSFERASE 193 U/L (12-78); ALBUMIN 3.8 g/dL (3.4-5.0); ANION GAP 6 mmol/L (5-15); CALCIUM 8.6 mg/dL (8.5-10.1); CHLORIDE 105 mmol/L (98-107)
[2020-11-24 12:42] LABS: ALKALINE PHOSPHATASE 122 U/L (45-117); BILIRUBIN,TOTAL 0.7 mg/dL (0.2-1.0); TOTAL PROTEIN 7.5 g/dL (6.4-8.2)
--- NOTE | 2020-11-24 12:51 | NUR ---
UA COLLECTED AND SENT TO THE LAB.
[2020-11-24 13:10] LABS: MICROSCOPIC NOT IND
[2020-11-24 14:27] VITALS: BP 126/87
== END 2020-11-24 14:30 | disposition home or self-care (01) ==
LOC: ED 12:50
DX: K29.20 Alcoholic gastritis without bleeding (principal); F10.20 Alcohol dependence, uncomplicated; F15.20 Other stimulant dependence, uncomplicated; Z72.9 Problem related to lifestyle, unspecified; R11.2 Nausea with vomiting, unspecified; Y90.0 Blood alcohol level of less than 20 mg/100 ml
CPT/HCPCS: 36415; 76705; 80053; 81003; 83690; 85025; 96361; 96374; 96375; 99284; J2060; J2405; J7030

== ENCOUNTER 2020-12-08 14:55 | Emergency (ER) | payer MEDICAID ==
[~2020-12-08] VITALS: Ht 177.8 cm; Wt 70.6 kg
--- NOTE | 2020-12-08 15:10 | NUR ---
PATIENT WALKED BACK FROM TRIAGE WITH CHIEF C/O DIFFUSE ABD PAIN SINCE 11/24, HAS INCREASED THE LAST 4-5 DAYS. PATIENT SEEN HERE RECENTLY FOR SAME ISSUE, UNABLE TO ESTABLISH WITH PRIMARY AT THIS TIME. CLEMENCIA HASKINS, CALL LIGHT WITHIN REACH.
--- NOTE | 2020-12-08 15:15 | NUR ---
PATIENT REPORTS DRINKING "2 SHOTS OF VODKA AT 6 THIS MORNING" AND "2 HITS OF METHAMPHETAMINE YESTERDAY."
[2020-12-08] MEDS ORDERED: ONDANSETRON 2MG/ML, 2ML ONE (15:57)
[2020-12-08] MEDS ORDERED: MORPHINE SULFATE 4 MG/ML, 1ML ONE (15:57)
[2020-12-08 16:00] LABS: BASOPHILS % (AUTO) 1 % (0-1); EOSINOPHILS % (AUTO) 1 % (1-7); LYMPHOCYTES % (AUTO) 38 % (22-44); MEAN CORPUSCULAR HEMOGLOBIN 34.8 pg (27.5-34.5); MEAN CORPUSCULAR HGB CONC 34.3 g/dL (33.2-36.2); MONOCYTES % (AUTO) 11 % (2-9); NEUTROPHILS % (AUTO) 49 % (42-75); PLATELET COUNT 261 x10^3/uL (130-400); RED BLOOD COUNT 4.15 x10^6/uL (4.38-5.82); RED CELL DISTRIBUTION WIDTH 13.1 % (9.4-14.8)
[2020-12-08] MEDS ORDERED: SODIUM CHLORIDE FLUSH 10ML SYR IVF ONE (16:00)
[2020-12-08] MEDS ORDERED: SODIUM CHLORIDE 0.9% 1,000ML IVBOLUS ONE (16:00)
[2020-12-08] MEDS ORDERED: MORPHINE SULFATE 4 MG/ML, 1ML IVPush PRN (16:00)
[2020-12-08] MEDS ORDERED: ONDANSETRON 2MG/ML, 2ML IVPush ONE (16:00)
[2020-12-08 16:06] LABS: MD NO
[2020-12-08 16:14] LABS: ALANINE AMINOTRANSFERASE 192 U/L (12-78); ALBUMIN 3.7 g/dL (3.4-5.0); ANION GAP 9 mmol/L (5-15); CALCIUM 8.5 mg/dL (8.5-10.1); CHLORIDE 108 mmol/L (98-107)
[2020-12-08 16:16] LABS: ALKALINE PHOSPHATASE 114 U/L (45-117); BILIRUBIN,TOTAL 0.6 mg/dL (0.2-1.0); TOTAL PROTEIN 7.6 g/dL (6.4-8.2)
--- NOTE | 2020-12-08 16:25 | NUR ---
PATIENT TO IMAGING.
[2020-12-08] MEDS ORDERED: OMNIPAQUE 350 MG/ML, 100ML BOTTLE ONE (16:43)
--- NOTE | 2020-12-08 17:06 | NUR ---
PATIENT RESTING IN GURNEY WITH EYES CLOSED, RESP EVEN AND UNLABORED, VSS, CALL LIGHT WITHIN REACH. WAITING FOR CT RESULTS.
[2020-12-08 17:14] LABS: MICROSCOPIC NOT IND
--- NOTE | 2020-12-08 17:16 | NUR ---
ERMD AT BEDSIDE TO DISCUSS POC AND DISCHARGE DISPO.
[2020-12-08 17:33] VITALS: BP 122/84
--- NOTE | 2020-12-08 17:45 | NUR ---
IV removed with tip intact. Patient given discharge instructions and prescription and they have confirmed that they understand the instructions. Patient stable and ambulatory with steady gait from ED to private vehicle.
== END 2020-12-08 17:46 | disposition home or self-care (01) ==
LOC: ED 14:57
DX: K29.20 Alcoholic gastritis without bleeding (principal)
CPT/HCPCS: 36415; 74177; 80053; 81003; 83690; 85025; 96361; 96374; 96375; 99285; J2270; J2405; J7030; Q9967

== ENCOUNTER 2021-01-05 05:47 | Emergency (ER) | payer MEDICAID ==
[~2021-01-05] VITALS: Ht 177.8 cm; Wt 69.0 kg
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
[2021-01-05 06:30] LABS: BASOPHILS % (AUTO) 1 % (0-1); EOSINOPHILS % (AUTO) 1 % (1-7); LYMPHOCYTES % (AUTO) 33 % (22-44); MEAN CORPUSCULAR HEMOGLOBIN 34.5 pg (27.5-34.5); MEAN CORPUSCULAR HGB CONC 35.6 g/dL (33.2-36.2); MEAN PLATELET VOLUME 9.1 fL (7.4-10.4); MONOCYTES % (AUTO) 12 % (2-9); NEUTROPHILS % (AUTO) 53 % (42-75); PLATELET COUNT 200 x10^3/uL (130-400); RED BLOOD COUNT 4.17 x10^6/uL (4.38-5.82); RED CELL DISTRIBUTION WIDTH 13.3 % (9.4-14.8)
[2021-01-05] MEDS ORDERED: MAALOX/HYOSCYAMINE/LIDOCAINE 45 ML BTL PO ONE (06:30)
[2021-01-05] MEDS ORDERED: MAALOX/HYOSCYAMINE/LIDOCAINE 45 ML BTL ONE (06:30)
[2021-01-05 06:40] LABS: ALANINE AMINOTRANSFERASE 168 U/L (12-78); ALBUMIN 3.9 g/dL (3.4-5.0); ANION GAP 5 mmol/L (5-15); CALCIUM 8.6 mg/dL (8.5-10.1); CHLORIDE 101 mmol/L (98-107); CREATININE 0.73 mg/dL (0.7-1.3)
--- NOTE | 2021-01-05 06:42 | NUR ---
pt tried to provide urine sample at this time but was not able to produce any urine
[2021-01-05 06:43] LABS: ALKALINE PHOSPHATASE 112 U/L (45-117); BILIRUBIN,TOTAL 0.9 mg/dL (0.2-1.0); TOTAL PROTEIN 8.1 g/dL (6.4-8.2)
[2021-01-05 07:02] VITALS: BP 124/86
--- NOTE | 2021-01-05 07:10 | NUR ---
report received from daniel grimm. pt resting in bed, a&o, resps even and unlabored, vss, nadn. pt aware of needed urine sample, ua supplies at bedside.
--- NOTE | 2021-01-05 08:20 | NUR ---
pt educated on discharge instructions, prescription, follow-up, and return criteria, verbalized understanding. resources provided. pt a&o, resps even and unlabored, vss, nadn. ambulatory to discharge with steady gait.
== END 2021-01-05 08:24 | disposition home or self-care (01) ==
LOC: ED 06:10
DX: R10.84 Generalized abdominal pain (principal); F10.220 Alcohol dependence with intoxication, uncomplicated; R42 Dizziness and giddiness; R06.02 Shortness of breath; Z88.0 Allergy status to penicillin; G89.29 Other chronic pain; Y90.0 Blood alcohol level of less than 20 mg/100 ml
CPT/HCPCS: 36415; 80053; 83690; 85025; 99283; 99284

== ENCOUNTER 2021-02-11 21:24 | Emergency (ER) | payer MEDICAID, OTHER ==
[~2021-02-11] VITALS: Ht 177.8 cm; Wt 70.0 kg
[2021-02-11 22:27] VITALS: BP 131/80
[2021-02-11] MEDS ORDERED: ONDANSETRON 2MG/ML, 2ML IVPush ONE (22:30)
[2021-02-11] MEDS ORDERED: SODIUM CHLORIDE 0.9% 1,000ML IVBOLUS ONE (22:30)
[2021-02-11] MEDS ORDERED: LORazepam 2 MG/ML, 1ML IVPush ONE (22:30)
[2021-02-11] MEDS ORDERED: ONDANSETRON 2MG/ML, 2ML ONE (22:41)
[2021-02-11] MEDS ORDERED: LORazepam 2 MG/ML, 1ML ONE (22:43)
--- NOTE | 2021-02-11 22:56 | NUR ---
PT BIB [facility], AND IN [facility] CUSTODY. PT MEDICATED PER MD ORDER, SEE EMAR. PT REMAINS IN GURNEY, IN HANDCUFFS AND IN CUSTODY. SO AT BEDSIDE WITH PT. IVF STARTED TO RUN OVER ONE HOUR.
[2021-02-11] MEDS ORDERED: PLEASE ENTER HEIGHT AND WEIGHT MC SCH (23:00)
[2021-02-11 23:03] LABS: ALBUMIN 3.3 g/dL (3.4-5.0); CALCIUM 8.2 mg/dL (8.5-10.1)
[2021-02-11 23:06] LABS: ANION GAP 4 mmol/L (5-15); CHLORIDE 107 mmol/L (98-107)
[2021-02-11 23:07] LABS: ALANINE AMINOTRANSFERASE 90 U/L (12-78); ALKALINE PHOSPHATASE 97 U/L (45-117); BILIRUBIN,TOTAL 0.8 mg/dL (0.2-1.0); CREATININE 0.63 mg/dL (0.7-1.3); TOTAL PROTEIN 7.2 g/dL (6.4-8.2)
[2021-02-11 23:11] LABS: BASOPHILS % (AUTO) 3 % (0-1); EOSINOPHILS % (AUTO) 2 % (1-7); LYMPHOCYTES % (AUTO) 35 % (22-44); MEAN CORPUSCULAR HGB CONC 35.2 g/dL (33.2-36.2); MEAN PLATELET VOLUME 9.1 fL (7.4-10.4); MONOCYTES % (AUTO) 13 % (2-9); NEUTROPHILS % (AUTO) 47 % (42-75); PLATELET COUNT 150 x10^3/uL (130-400); RED BLOOD COUNT 3.67 x10^6/uL (4.38-5.82); RED CELL DISTRIBUTION WIDTH 13.4 % (9.4-14.8)
[2021-02-11 23:21] LABS: INTERNATIONAL NORMALIZED RATIO 1.03 (0.93-1.1)
[2021-02-11] MEDS ORDERED: POTASSIUM CHLORIDE 20 MEQ TAB.ER.PRT PO ONE (23:30)
[2021-02-11] MEDS ORDERED: POTASSIUM CHLORIDE 20 MEQ TAB.ER.PRT ONE (23:35)
--- NOTE | 2021-02-11 23:45 | NUR ---
PT SLEEPING AT THIS TIME, REMAINS ON CR MONITOR, AND SHERRIFF OFFICER AT BEDSIDE. PT REMAINS IN HAND CUFFS.
--- NOTE | 2021-02-12 00:37 | NUR ---
f/u and d/c instructions given to pt, and to sherrifs officer, and they v/u. pt d/c'd without incident. pt with no shaking at this time, and is more comfortable. pt escorted from er in hand cuffs by officers.
== END 2021-02-12 01:03 ==
LOC: ED 21:54
DX: F10.139 Alcohol abuse with withdrawal, unspecified (principal); E87.6 Hypokalemia; F17.200 Nicotine dependence, unspecified, uncomplicated; Y90.0 Blood alcohol level of less than 20 mg/100 ml
CPT/HCPCS: 36415; 80053; 80320; 83690; 85025; 85610; 96361; 96374; 96375; 99284; J2060; J2405; J7030; G0480

== ENCOUNTER 2021-02-26 11:30 | Emergency (ER) | payer MEDICAID, OTHER ==
[~2021-02-26] VITALS: Ht 177.8 cm; Wt 69.1 kg
[2021-02-26 11:41] VITALS: BP 107/79
== END 2021-02-26 15:33 | disposition left against medical advice (07) ==
LOC: ED 15:27
DX: R10.84 Generalized abdominal pain (principal); R11.10 Vomiting, unspecified
CPT/HCPCS: 99281